=== PATIENT | male | born 1965 | race Caucasian/White ===

== ENCOUNTER 2017-10-18 06:50 | Emergency (ER) | payer MEDICARE, OTHER ==
[2017-10-18] MEDS ORDERED: IPRATRPIUM/ALBUTEROL 0.5/2.5MG 3 ML NEBU. ONE (07:08)
--- NOTE | 2017-10-18 07:16 | RAD ---
PQRS Compliance statement: One or more of the following individualized dose reduction techniques were utilized for this examination: 1. Automated exposure control. 2. Adjustment of the mA and/or kV according to patient size. 3. Use of iterative reconstruction technique. Indication:stroke TECHNIQUE: CT head without IV contrast COMPARISON:None FINDINGS: No pathologic extra-axial or intra-axial fluid collection. The ventricles and basal cisterns are within normal limits. No acute intracranial bleed. Atherosclerotic disease is seen in the V4 segment of the left vertebral artery. There is a 7 mm focus of low attenuation in the right basal ganglia. Mild periventricular white matter disease noted. No focal loss of fraga-white differentiation. Orbits are within normal limits. No acute calvarial fractures. Visualized paranasal sinuses and mastoid air cells are clear. IMPRESSION: 1. Small focal (7 mm) focus of low attenuation in the right basal ganglia may represent a lacunar infarct, age indeterminate. If concern for acute ischemic stroke is high, please consider MRI brain. Critical findings were identified on 10/18/2017 7:06 AM, read back and verified with Dr. Templeton on 10/18/2017 7:[address] Don Sparks DO. Electronically signed by: Don Sparks DO (10/18/2017 7:12 AM) [id number]
--- NOTE | 2017-10-18 07:22 | EKG ---
[address] [address] Test Date: 2017-10-18 Test Time: 07:03:35 Pat Name: HEENA SOW Department: Room: Gender: M Furniture Sales Associate: : [id number] Requested By: MICAH LOPEZ Order Number: [id number] Reading MD: Irwin Wu MD Measurements Intervals [place] Rate: 126 P: 49 PA: 128 QRS: 29 QRSD: 74 T: 43 QT: 294 QTc: 426 Interpretive Statements SINUS TACHYCARDIA NON-SPECIFIC ST/T CHANGES Electronically Signed On 10-21-2017 9:03:52 CDT by Irwin Wu MD
[2017-10-18 07:33] LABS: BASO # 0.1 x10^3/uL (0.0-0.2); BASO % 1 % (0-3); EOS # 0.2 x10^3/uL (0.0-0.7); EOS % 2 % (0-3); HEMOGLOBIN 15.4 g/dL (13.0-17.5); LYMPH # 1.3 x10^3/uL (1.0-4.8); LYMPH % 14 % (24-48); MEAN CORPUSCULAR HEMOGLOBIN 30 pg (25-35); MEAN CORPUSCULAR HGB CONC 33 g/dL (31-37); MEAN CORPUSCULAR VOLUME 89 fL (79-100); MONO # 0.8 x10^3/uL (0.0-1.1); MONO % 9 % (0-9); NEUT # 6.8 x10^3uL (1.8-7.7); NEUT % 74 % (31-73); PLATELET COUNT 270 x10^3/uL (140-400); RED BLOOD COUNT 5.15 x10^6/uL (4.30-5.70); RED CELL DISTRIBUTION WIDTH 15.2 % (11.5-14.5); WHITE BLOOD COUNT 9.2 x10^3/uL (4.0-11.0)
[2017-10-18 07:40] LABS: CALCIUM 9.8 mg/dL (8.5-10.1); CREATININE 1.7 mg/dL (0.7-1.3); GFR 42.2; POTASSIUM 3.9 mmol/L (3.5-5.1)
--- NOTE | 2017-10-18 07:52 | PHYS DOC ---
Adult General Chief Complaint Chief Complaint: BLOOD SUGAR PROBLEM HPI HPI 52-year-old male presents with hypoglycemia and concern for stroke. The patient was last known well last night. When the patient woke this morning, he was having a feeling of generalized increasing weakness as well as slurred speech and some difficulty word finding. His blood sugar was in the 30s. EMS gave him glucose which increased his blood sugar to the 60s. The patient became more aware and was able to speak. He continued to have slurred speech. He was given his additional dose of glucose as well as some solid food which she was able to swallow. The patient's blood sugar improved to 114, but the slurred speech remained. The patient has a history of strokes in this new finding was concerning so they brought him to this facility with concern for new stroke. The patient tells me that he noticed the slurred speech but felt like he was able to develop and express sentences without difficulty. The patient was reported to have blood pressures of 200/110 in the field. On arrival he was 166/ 99. The patient has a history of strokes. 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 Most recent strokes were hemorrhagic. The patient has baseline weakness on the left side in the upper and lower extremity. He also has some swallowing difficulty as well as restrictive lung disease due to the strokes. Patient is normally cared for at . His spouse confirms that he was last "normal" last night and that she noticed the slurred speech this morning and that this is unusual. She has not noticed any other new deficits. Review of Systems Review of Systems Constitutional: Denies fever or chills [] Eyes: Denies change in visual acuity, redness, or eye pain [] HENT: Denies nasal congestion or sore throat [] Respiratory: shortness of breath, wheezing [] Cardiovascular: No additional information not addressed in HPI [] GI: Denies abdominal pain, nausea, vomiting, bloody stools or diarrhea [] : Denies dysuria or hematuria [] Musculoskeletal: Denies back pain or joint pain [] Integument: Denies rash or skin lesions [] Neurologic: Denies headache. Slurred speech [] Endocrine: Denies polyuria or polydipsia [] All other systems were reviewed and found to be within normal limits, except as documented in this note. Current Medications Current Medications Current Medications Medications (Trade) Dose Ordered Sig/Bon Start Time Stop Time Status Last Admin Dose Admin Albuterol/ Ipratropium (Duoneb) 3 ml STK-MED ONCE 10/18/17 07:08 10/18/17 07:09 DC Allergies Allergies Allergies Coded Allergies Type Severity Reaction Last Updated Verified No Known Drug Allergies 10/18/17 No Physical Exam Physical Exam Constitutional: Well developed, well nourished, no acute distress, non-toxic appearance. [] HENT: Normocephalic, atraumatic, bilateral external ears normal, oropharynx moist, no oral exudates, nose normal. [] Eyes: PERRLA, EOMI, conjunctiva normal, no discharge. [] Neck: Normal range of motion, no tenderness, supple, no stridor. [] Cardiovascular: Tachycardia, rate 116, no murmur [] Lungs & Thorax: Bilateral expiratory wheezes[] Abdomen: Bowel sounds normal, soft, no tenderness, no masses, no pulsatile masses. [] Skin: Warm, dry, no erythema, no rash. [] Back: No tenderness, no CVA tenderness. [] Extremities: No tenderness, no cyanosis, no clubbing, ROM intact, no edema. [] Neurologic: Alert and oriented X 3, decreased strength in the left arm and leg 4 /5, normal sensory function, very slightly slurred speech. No word finding difficulty. No facial droop.[] Psychologic: Affect normal, judgement normal, mood normal. [] Current Patient Data Vital Signs Vital Signs Date Time Temp Pulse Resp B/P (MAP) Pulse Ox O2 Delivery O2 Flow Rate FiO2 10/18/17 07:11 98 Nasal Cannula 3.0 Lab Results Laboratory Tests Test 10/18/17 06:58 10/18/17 07:20 Glucose (Fingerstick) 136 mg/dL (70-99) H White Blood Count 9.2 x10^3/uL (4.0-11.0) Red Blood Count 5.15 x10^6/uL (4.30-5.70) Hemoglobin 15.4 g/dL (13.0-17.5) Hematocrit 46.0 % (39.0-53.0) Mean Corpuscular Volume 89 fL (79-100) Mean Corpuscular Hemoglobin 30 pg (25-35) Mean Corpuscular Hemoglobin Concent 33 g/dL (31-37) Red Cell Distribution Width 15.2 % (11.5-14.5) H Platelet Count 270 x10^3/uL (140-400) Neutrophils (%) (Auto) 74 % (31-73) H Lymphocytes (%) (Auto) 14 % (24-48) L Monocytes (%) (Auto) 9 % (0-9) Eosinophils (%) (Auto) 2 % (0-3) Basophils (%) (Auto) 1 % (0-3) Neutrophils # (Auto) 6.8 x10^3uL (1.8-7.7) Lymphocytes # (Auto) 1.3 x10^3/uL (1.0-4.8) Monocytes # (Auto) 0.8 x10^3/uL (0.0-1.1) Eosinophils # (Auto) 0.2 x10^3/uL (0.0-0.7) Basophils # (Auto) 0.1 x10^3/uL (0.0-0.2) EKG EKG [] Radiology/Procedures Radiology/Procedures [] Course & Med Decision Making Course & Med Decision Making Pertinent Labs and Imaging studies reviewed. (See chart for details) While the patient was in the ED, his slurred speech seemed to improve. His blood pressure on arrival was improved from the numbers in the field. His blood sugar was 136. The patient states that he is feeling better. The head CT shows a 7 mm hypodensity in the right basal ganglia. It is unknown if this is new as we have no previous for comparison. The patient and his spouse are unsure about this location related to previous stroke. Since the patient has a complicated stroke history and all of his previous care has been a , feel that it is prudent to transfer the patient to for further workup and evaluation. The patient and his spouse are in agreement with this plan. Since the patient was wheezing, we gave him a DuoNeb treatment. This was minimally effective. He does have O2 sat of 98% on room air. He continues to be tachycardic at 115. Dr. Allan Lewis at has accepted the patient for transfer. He will go by ambulance. [] Dragon Disclaimer Dragon Disclaimer This electronic medical record was generated, in whole or in part, using a voice recognition dictation system. Departure Departure: Referrals: LORI KIM MD (PCP) MICAH LOPEZ DO Oct 18, 2017 07:52
[2017-10-18 08:17] VITALS: BP 155/84
== END 2017-10-18 09:15 | disposition short-term general hospital (02) ==
LOC: ER 06:50
DX: E16.2 Hypoglycemia, unspecified (principal); R53.1 Weakness
CPT/HCPCS: 36415; 70450; 80048; 82947; 85025; 85610; 85730; 93005; 94640; 99285-25